=== PATIENT | male | born 1995 | race Caucasian/White ===

== ENCOUNTER 2018-01-18 11:59 | Emergency (ER) | payer OTHER, SELFPAY ==
[2018-01-18 12:36] VITALS: BP 146/77; PULSE 77; RESP 16; TEMP 37.3; O2SAT 100; BMI 23.1
--- NOTE | 2018-01-18 12:42 | XR_ITS ---
XR shoulder LT min 2V HISTORY: Pain following injury ITS.REASON: HIT A FENCE POST/FEELS LIKE ITS POPPING OUT ORDERING PHYSICIAN: Yaquelin Ortega PATIENT AGE: 22 years COMPARISON: None FINDINGS: No fracture or dislocation. No lytic or blastic change. There is normal mineralization. The joint spaces are well-preserved. No significant degenerative/arthritic changes. No erosive changes evident. IMPRESSION: Negative, no acute finding
--- NOTE | 2018-01-18 13:18 | HMH.EDUTC ---
[facility] [place]: Left shoulder pain Qualifiers: Chronicity: acute Qualified Code(s): M25.512 - Pain in left shoulder Disposition: Home, Self-Care Condition on Discharge: Good Instructions: DI for Rotator Cuff Injury, DI for Shoulder Pain Additional Instructions: * Xray negative. Exam suggest injury to the rotator cuff. Follow up will be important * move as tolerated but with any pain, stop. No heavy lifting, pulling, pushing with left arm. See workman's comp form for restrictions * Rest * ice 15-20 mins 3-4 times a day *sling for support. * Ibuprofen every 6 hours as needed for pain and inflammation. If you need something more, you can take tylenol every 4 hours as needed as long as your primary care provider has told you it is ok to take both. Referrals: Valente Almazan MD [Staff Physician] - (Call office Friday. Report seen in [facility] and suspect rotator cuff injury. Request follow up appt) Time of Disposition: 13:30 Medical Decision Making Vital Signs: 01/18/18 12:36 Temperature 99.1 F Temperature Source Temporal Artery Scan Pulse Rate [Right Radial] 77 Respiratory Rate 16 Blood Pressure [Right Arm] 146/77 Blood Pressure Mean [Right Arm] 100 02 Sat by Pulse Oximetry 100 Oxygen Delivery Method Room Air Orders (Tests/Meds): ORDERS Category Date Time Status Shoulder XR left minimum 2 views [XR shoulder LT min 2V Exams 01/18/18 12:42 Taken ] Stat - Radiology Data #1 Image(s): Shoulder Image Reviewed: Yes I reviewed the patient's radiology image w/the ED provider Preliminary Findings: Normal/NAD rvwd w JACOB Mcclain MD - Fredrick Inquiry Pt receiving controlled substance: No [facility] [place] - General Stated complaint: WC [id number] left shoulder pain Time Seen by Provider: 01/18/18 13:19 Mode of Arrival: Family Vehicle Source of Information: Patient Limitations: No Limitations Description of Symptoms (Recalled from Triage Doc. by RN): PT STATES THAT ON 01/10/18 HE WAS AT WORK AND WAS WALKING A HORSE WHEN HE TRIPPED AND HIT HIS LEFT SHOULDER ON A FENCE POST. SINCE THE ACCIDENT THE PAIN HAS INCREASING GOTTEN WORSE AND FEELS LIKE HIS SHOULDER IS POPPING OUT OF PLACE. HEENT Symptoms (Recalled from RN notes): No Resp Symptoms (Recalled from RN notes): No Skin Symptoms (Recalled from RN notes): No MS Symptoms (Recalled from RN notes): Yes (LEFT SHOULDER INJURY/FEELS LIKE ITS POPPING OUT) Functional Status (Recalled from RN notes): NA - History of Present Illness Provider Complaint: c/o left shoulder pain. Started on Friday, one week ago, while at work. Reports he was leading a horse to field when it took off, he tripped, and reports running shoulder first into a fence post. Immediate pain but just thought it was like a bone bruise . No treatment since then. Tried waiting out the pain. No ice, heat, otc pain relievers, nothing. Pain worsening and feels popping in shoulder at times w/ movement but not consistently. Denies N/T. - Related Data Allergies Allergy/AdvReac Type Severity Reaction Status Date / Time NO KNOWN ALLERGIES - NKA Allergy Mild Uncoded 11/04/17 15:00 INGREDIENT: NO KNOWN - NO Allergy Unknown Uncoded 11/04/17 15:00 KNOWN DRUG ALLERGY - Worker's Comp Is this a Worker's Comp case?: Yes Is this an [employer] Worker's Comp?: No Is this a [facility] Worker's Comp?: No [facility] History I have reviewed the patient's past medical history: Yes (denies any PMHx) Medical History: Denies:: Cancer, Diabetes Mellitus Type 1, Diabetes Mellitus Type 2, Hypertension, MRSA Other Surgeries: Yes: No Previous Surgery Amputation: No Fractures: No - Social History Smoking Status: Current every day smoker Tobacco Type: cigarettes Alcohol Intake: never - Psychiatric History Expresses thoughts of harming self/others: None Suicide Plan Description: No Plan ROS Obtained: Yes Systems reviewed as appropriate & no additional complaints - Constitutional Constitutional: Denies fever
--- NOTE | 2018-01-18 13:27 | ED_ITS ---
[facility] [place] Clinical Impression: Left shoulder pain Qualifiers: Chronicity: acute Qualified Code(s): M25.512 - Pain in left shoulder Disposition: Home, Self-Care Condition on Discharge: Good Instructions: DI for Rotator Cuff Injury, DI for Shoulder Pain Additional Instructions: * Xray negative. Exam suggest injury to the rotator cuff. Follow up will be important * move as tolerated but with any pain, stop. No heavy lifting, pulling, pushing with left arm. See workman's comp form for restrictions * Rest * ice 15-20 mins 3-4 times a day *sling for support. * Ibuprofen every 6 hours as needed for pain and inflammation. If you need something more, you can take tylenol every 4 hours as needed as long as your primary care provider has told you it is ok to take both. Referrals: Valente Almazan MD [Staff Physician] - (Call office Friday. Report seen in [facility] and suspect rotator cuff injury. Request follow up appt) Time of Disposition: 13:30 Medical Decision Making Vital Signs: 01/18/18 12:36 Temperature 99.1 F Temperature Source Temporal Artery Scan Pulse Rate [Right Radial] 77 Respiratory Rate 16 Blood Pressure [Right Arm] 146/77 Blood Pressure Mean [Right Arm] 100 02 Sat by Pulse Oximetry 100 Oxygen Delivery Method Room Air Orders (Tests/Meds): ORDERS Category Date Time Status Shoulder XR left minimum 2 views [XR shoulder LT min 2V Exams 01/18/18 12:42 Taken ] Stat - Radiology Data #1 Image(s): Shoulder Image Reviewed: Yes I reviewed the patient's radiology image w/the ED provider Preliminary Findings: Normal/NAD rvwd w JACOB Mcclain MD - Fredrick Inquiry Pt receiving controlled substance: No [facility] [place]PI - General Stated complaint: WC [id number] left shoulder pain Time Seen by Provider: 01/18/18 13:19 Mode of Arrival: Family Vehicle Source of Information: Patient Limitations: No Limitations Description of Symptoms (Recalled from Triage Doc. by RN): PT STATES THAT ON HE WAS AT WORK AND WAS WALKING A HORSE WHEN HE TRIPPED AND HIT HIS LEFT SHOULDER ON A FENCE POST. SINCE THE ACCIDENT THE PAIN HAS INCREASING GOTTEN WORSE AND FEELS LIKE HIS SHOULDER IS POPPING OUT OF PLACE. HEENT Symptoms (Recalled from RN notes): No Resp Symptoms (Recalled from RN notes): No Skin Symptoms (Recalled from RN notes): No MS Symptoms (Recalled from RN notes): Yes (LEFT SHOULDER INJURY/FEELS LIKE ITS POPPING OUT) Functional Status (Recalled from RN notes): NA - History of Present Illness Provider Complaint: c/o left shoulder pain. Started on Friday, one week ago, while at work. Reports he was leading a horse to field when it took off, he tripped, and reports running shoulder first into a fence post. Immediate pain but just thought it was like a bone bruise . No treatment since then. Tried waiting out the pain. No ice, heat, otc pain relievers, nothing. Pain worsening and feels popping in shoulder at times w/ movement but not consistently. Denies N/T. - Related Data Allergies Allergy/AdvReac Type Severity Reaction Status Date / Time NO KNOWN ALLERGIES - NKA Allergy Mild Uncoded 11/04/17 15:00 INGREDIENT: NO KNOWN - NO Allergy Unknown Uncoded 11/04/17 15:00 KNOWN DRUG ALLERGY - Worker's Comp Is this a Worker's Comp case?: Yes Is this an [facility] Worker's Comp?: No Is this a [facility] Worker's Comp?: No [facility] History I have reviewed the patie
[2018-01-18 13:36] VITALS: BP 135/72; PULSE 73; RESP 16; TEMP 37.1; O2SAT 100
== END 2018-01-18 13:42 | disposition home or self-care (01) ==
PROVIDERS: Emergency Provider Nurse Practitioner Family
DX: M25.512 Pain in left shoulder (principal); W22.8XXA Striking against or struck by other objects, initial encounter; Y92.69 Other specified industrial and construction area as the place of occurrence of the external cause; Y99.0 Civilian activity done for income or pay
CPT/HCPCS: 73030; 99202

== ENCOUNTER 2021-01-07 12:40 | Emergency (ER) | payer SELFPAY ==
[2021-01-07 12:40] VITALS: BP 144/86; PULSE 89; RESP 20; TEMP 38.8; O2SAT 100; BMI 25.0
--- NOTE | 2021-01-07 13:07 | HMH.EDUTC ---
[facility] [place] Disposition Clinical Impression: URI (upper respiratory infection) Qualifiers: URI type: unspecified URI Qualified Code(s): J06.9 - Acute upper respiratory infection, unspecified Disposition: Home, Self-Care Condition on Discharge: Good Instructions: Sore Throat, Sinusitis, DI for COVID-19 (Suspected or Confirmed ), Coronavirus Disease 2019, DI for Low Back Pain Additional Instructions: *Monitor Temp, Over the counter Motrin or Tylenol as directed/as needed Tylenol every 4 hours and Motrin every 6 hours (as long as your family doctor has told you that you can take it) for fever or pain. and straight to ER if unable to lower temp less than 101.0 after medication given *Warm salt water gargles may help to soothe the throat *Throat Lozenges *Warm fluids like tea with honey may help to soothe the throat *Sleep elevated *Humidifier/Vaporizer Your throat swab was sent for culture. Those results are typically sent to your primary care. Be sure to follow up in 2-3 days with your family doctor/primary care physician if no improvement so they can review those result and treat if necessary. If you don?t have a primary care doctor, I recommend you get one but in the mean time, you will have to return to a walk in clinic Follow up IMMEDIATELY for new or worsening symptoms or no Noticeable improvement over the next 48-72 hours. 911 for difficulty breathing or swallowing You were tested for today for COVID19 your test result should be back in the next 24-48 hours, you may call to the [facility] [[email or web address]] to see if your test results are back in the next 48 hours [phone] [facility] [[email or web address]] hours are 9am-9pm You was given a handout with instructions for Self Quarantine and Self isolation for while you wait on test results and what to do if they are positive If you are positive the Health Dept will be contacting you also Prescriptions: methylPREDNISolone [Medrol 4mg tab] 4 mg PO DIRECTED #21 tab Transmission Status: Received by [id number] Azithromycin [Z-Jason 250mg Tab] 250 mg PO DIRECTED #6 tab Transmission Status: Received by [id number] Referrals: PCP,No [Primary Care Provider] - As needed Forms: Work/School Release Time of Disposition: 13:26 Medical Decision Making - Fredrick Inquiry Pt receiving controlled substance: No Fredrick was queried for this patient: No Vital Signs: 01/07/21 12:40 Temperature 101.8 F H Temperature Source Oral Pulse Rate [Right Brachial] 89 Respiratory Rate 20 Blood Pressure [Right Arm] 144/86 H Blood Pressure Mean [Right Arm] 105 Blood Pressure Source [Right Arm] Automatic Cuff Blood Pressure Position [Right Arm] Sitting 02 Sat by Pulse Oximetry 100 Oxygen Delivery Method Room Air - Lab Data Lab results reviewed: Yes: I reviewed the patient's lab results. Orders (Tests/Meds): ED MEDICATIONS Discontinued Medications Generic Name Dose Route Start Last Admin Trade Name Freq PRN Reason Stop Dose Admin Ibuprofen 800 mg 01/07/21 13:06 01/07/21 13:14 Ibuprofen 400 Mg Tablet PO 01/07/21 13:07 800 mg ONCE ONE Administration ORDERS Category Date Time Status Covid-19 Nasal PCR ([facility]) Routine Lab 01/07/21 13:10 Received [facility] [place] HPI - General Stated complaint: cough, back pain, headache Time Seen by Provider: 01/07/21 13:07 Mode of Arrival: Ambulatory Source of Information: Patient Limitations: No Limitations Description of Symptoms (Recalled from Triage Doc. by RN): PATIENT C/O COUGH, BACK PAIN, RUNNY NOSE, HEADACHE, AND FEVER X 2 DAYS HEENT Symptoms (Recalled from RN notes): Yes Resp Symptoms (Recalled from RN notes): Yes Skin Symptoms (Recalled from RN notes): No MS Symptoms (Recalled from RN notes): No Functional Status (Recalled from RN notes): WNL - History of Present Illness Provider Complaint: Patient state that he has not felt well for a couple days States that he feels like his throat hurts and scratchy, headache, body aches and low back ache chills and
[2021-01-07 13:42] LABS: Apearance,Urine Clear (Clear); Bilirubin,Urine 1+ (Negative); Blood, Urine Negative (Negative); Color,Urine Yellow (Yellow); Glucose,Urine (UA) Negative (Negative); Ketones,Urine TRACE (Negative); Protein,Urine 1+ (Negative); UTC Leukocyte Esterase,Urine Negative (Negative); UTC Nitrate,Urine Negative (Negative); Urobilinogen,Urine 0.2 EU/dl (0.2)
[2021-01-07 13:43] VITALS: BP 144/86; PULSE 89; RESP 20; TEMP 37.1; O2SAT 100
[2021-01-07 13:43] LABS: UTC Influenza A Antigen Negative (Negative); UTC Influenza B Antigen Negative (Negative); UTC Strep Screen (Rapid) Negative (Negative)
--- NOTE | 2021-01-07 20:17 | PC.NURSE ---
PT NOTIFIED OF POSITIVE COVID RESULT
== END 2021-01-07 13:48 | disposition home or self-care (01) ==
PROVIDERS: Emergency Provider Nurse Practitioner
DX: U07.1 COVID-19 (principal)
CPT/HCPCS: 81003; 87804; 87880; 99202; G0463; U0003

== ENCOUNTER 2021-02-09 16:12 | Emergency (ER) | payer OTHER, SELFPAY ==
[2021-02-09 16:42] VITALS: BP 147/80; PULSE 68; RESP 19; TEMP 37; O2SAT 98; BMI 24.4
--- NOTE | 2021-02-09 16:57 | HMH.EDUTC ---
[facility] [place] Impression: Cellulitis of left index finger Disposition: Home, Self-Care Condition on Discharge: Good Instructions: Cellulitis Additional Instructions: Apply warm wet compresses to the affected sites three or four times per day for 15 minutes as tolerated, or soak your hand in epsom salts water 3 or 4 times per day. Take the antibiotics as directed. Apply the topical medication as directed. Follow up with your regular doctor. Watch the site for signs of worsening infection, such as worsening swelling, drainage, redness, etc. Follow up for any concerns. GO TO THE ER FOR ANY WORSENING SYMPTOMS OR CONCERNS Prescriptions: Sulfamethoxazole/Trimethoprim [Bactrim DS tablet] 1 each PO BID 10 Days #20 tab Transmission Status: Received by [facility] Mupirocin [Bactroban 2% Ointment 22gm tube] 1 applicatio TP TID 7 Days #1 tube Transmission Status: Received by [facility] cephALEXin [cephALEXin 500mg capsule] 500 mg PO Q6H 10 Days #40 cap Transmission Status: Received by [facility] Referrals: PCP,No [Primary Care Provider] - Time of Disposition: 17:01 Medical Decision Making - Medical Records Medical records reviewed: No: I reviewed the patient's medical records. - Fredrick Inquiry Pt receiving controlled substance: No Vital Signs: 02/09/21 16:42 02/09/21 17:10 Temperature 98.6 F 98.5 F Temperature Source Oral Pulse Rate 67 Pulse Rate [Right] 68 Respiratory Rate 19 20 Blood Pressure 145/84 H Blood Pressure [Right Arm] 147/80 H Blood Pressure Mean [Right Arm] 102 Blood Pressure Source [Right Arm] Automatic Cuff 02 Sat by Pulse Oximetry 98 Oxygen Delivery Method Room Air Room Air Orders (Tests/Meds): ORDERS Category Date Time Status Wound Culture and Gram Stain Stat Micro 02/09/21 17:00 Results [facility] [place] - General Stated complaint: ao 02/07 SPINDER IN l HAND Time Seen by Provider: 02/09/21 16:57 - History of Present Illness Provider Complaint: He states that for the past 3 to 4 days he has had an infected place on his left index finger. There was a splinter in this wound to start out,but he got it out yesterday. Since then the wound has swollen more and had tannish discharge. - Related Data Previous Rx's Medication Instructions Recorded Mupirocin [Bactroban 2% Ointment 1 applicatio TP TID 7 Days #1 tube 02/09/21 22gm tube] Sulfamethoxazole/Trimethoprim 1 each PO BID 10 Days #20 tab 02/09/21 [Bactrim DS tablet] cephALEXin [cephALEXin 500mg 500 mg PO Q6H 10 Days #40 cap 02/09/21 capsule] Allergies Allergy/AdvReac Type Severity Reaction Status Date / Time No Known Allergies Allergy Verified 09/12/18 13:49 [facility] History - Hepatitis A Screen Attestation statement:: This patient has been screened for Hepatitis A risk factors. I have reviewed the patient's past medical history: Yes Medical History: Denies:: Cancer, Diabetes Mellitus Type 1, Diabetes Mellitus Type 2, Hypertension, MRSA Other Surgeries: Yes: No Previous Surgery Amputation: No Fractures: No - Social History Smoking Status: Unknown if ever smoked Tobacco Type: smokeless tobacco Alcohol Intake: never Occupational Status: other ROS Obtained: Yes All systems reviewed & no additional complaints - Constitutional Constitutional: Denies chills, Denies fever(s) - Eyes Eyes: Denies eye discharge - Musculoskeletal Musculoskeletal: Denies joint pain - Integumentary/Breasts Skin/Breast: Reports as per HPI - Neurologic Neurologic: Denies tingling/numbness/burning sensations Physical Exam - General General appearance: alert, in no apparent distress - Head Head exam: atraumatic, normocephalic, normal inspection - Eye Eye exam: Present: normal appearance, PERRL, EOMI - ENT ENT exam: Present: normal exam, normal oropharynx, mucous membranes moist, TM's normal bilaterally, normal external ear exam - Ne
[2021-02-09 17:10] VITALS: BP 145/84; PULSE 67; RESP 20; TEMP 36.9; O2SAT 99
== END 2021-02-09 17:16 | disposition home or self-care (01) ==
PROVIDERS: Emergency Provider Nurse Practitioner Family
DX: L03.012 Cellulitis of left finger (principal)
CPT/HCPCS: 87070; 87077; 87186; 87205; 99202; G0463

== ENCOUNTER 2021-04-14 12:06 | Emergency (ER) | payer OTHER, SELFPAY ==
[2021-04-14 12:15] VITALS: BP 140/87; PULSE 98; RESP 20; TEMP 36.8; O2SAT 100; BMI 24.4
[2021-04-14 12:54] LABS: UTC Strep Screen (Rapid) Positive (Negative)
--- NOTE | 2021-04-14 13:10 | HMH.EDUTC ---
[facility] [place] Disposition Clinical Impression: Strep throat Disposition: Home, Self-Care Condition on Discharge: Good Instructions: DI for Strep Throat Additional Instructions: Start antibiotics today be sure to take it as ordered with the full length of time although you should start feeling better in 24-48 hours. Change toothbrush and toothpaste 24-48 hours after starting antibiotics Tylenol or Motrin as needed for fever or pain Encourage fluids, water, Gatorade, Powerade, try cold fluids, popsicles, ice cream will make it feel better You are contagious for 24 hours. Avoid kissing anyone, no eating or drinking after anyone. You are contagious. Follow-up the ER for new or worsening symptoms or no noticeable improvement over the next 24-48 hours. Follow-up with PCP this week. Prescriptions: Azithromycin [Zithromax 250mg tab] 250 mg PO DIRECTED #6 tab Transmission Status: Pending to [facility] Referrals: Provider,Referral, [Primary Care Provider] - Time of Disposition: 13:13 (pt refused covid swab) Medical Decision Making - Fredrick Inquiry Pt receiving controlled substance: No Vital Signs: 04/14/21 12:15 Temperature 98.2 F Temperature Source Oral Pulse Rate [Right Brachial] 98 H Respiratory Rate 20 Blood Pressure [Right Arm] 140/87 Blood Pressure Mean [Right Arm] 104 Blood Pressure Source [Right Arm] Automatic Cuff Blood Pressure Position [Right Arm] Sitting 02 Sat by Pulse Oximetry 100 Oxygen Delivery Method Room Air - Lab Data Lab Results 04/14/21 12:18: Strep Scn Rapid Clinic Positive A [facility] [place] HPI - General Chief complaint: Urgent [facility] Stated complaint: congestion, sore throat Time Seen by Provider: 04/14/21 13:10 Mode of Arrival: Ambulatory Source of Information: Patient Limitations: No Limitations Description of Symptoms (Recalled from Triage Doc. by RN): PATIENT C/O SORE THROAT, CONGESTION, AND COUGH X 1 WEEK HEENT Symptoms (Recalled from RN notes): No Resp Symptoms (Recalled from RN notes): No Skin Symptoms (Recalled from RN notes): Yes MS Symptoms (Recalled from RN notes): No Functional Status (Recalled from RN notes): WNL - History of Present Illness Provider Complaint: 25 yr old male presents for sore throat, congestion and runny nose for 1 week. - Related Data Previous Rx's Medication Instructions Recorded Mupirocin [Bactroban 2% Ointment 1 applicatio TP TID 7 Days #1 tube 02/09/21 22gm tube] Sulfamethoxazole/Trimethoprim 1 each PO BID 10 Days #20 tab 02/09/21 [Bactrim DS tablet] cephALEXin [cephALEXin 500mg 500 mg PO Q6H 10 Days #40 cap 02/09/21 capsule] Azithromycin [Zithromax 250mg 250 mg PO DIRECTED #6 tab 04/14/21 tab] Allergies Allergy/AdvReac Type Severity Reaction Status Date / Time No Known Allergies Allergy Verified 09/12/18 13:49 - Worker's Comp Is this a Worker's Comp case?: No [facility] History - Hepatitis A Screen Drug use history?: No High risk sexual behaviors?: No History of sexually transmitted infection?: No Currently employed?: No Childcare worker?: No Do you have indoor plumbing?: Yes Do you have electricity?: Yes Attestation statement:: This patient has been screened for Hepatitis A risk factors. I have reviewed the patient's past medical history: Yes Medical History: Denies:: Cancer, Diabetes Mellitus Type 1, Diabetes Mellitus Type 2, Hypertension, MRSA Other Surgeries: Yes: No Previous Surgery Amputation: No Fractures: No - Social History Smoking Status: Unknown if ever smoked Tobacco Type: smokeless tobacco Alcohol Intake: never Occupational Status: other ROS Obtained: Yes Systems reviewed as appropriate & no additional complaints - Constitutional Constitutional: Reports system reviewed and no additional complaints, except as docu, Denies chills, Denies fever(s) - Eyes Eyes: Reports system reviewed and no additional complaints, except as docu, Denies blurry vision
[2021-04-14 13:24] VITALS: BP 140/87; PULSE 98; RESP 20; TEMP 36.8; O2SAT 100
== END 2021-04-14 13:27 | disposition home or self-care (01) ==
PROVIDERS: Emergency Provider Nurse Practitioner Family
DX: J02.0 Streptococcal pharyngitis (principal)
CPT/HCPCS: 87880; 99202; G0463

== ENCOUNTER 2021-06-20 09:50 | Emergency (ER) | payer OTHER, SELFPAY ==
[2021-06-20 09:51] VITALS: BP 145/85; PULSE 90; RESP 21; TEMP 37.1; O2SAT 99; BMI 25.0
[2021-06-20 10:34] LABS: UTC Strep Screen (Rapid) Positive (Negative)
--- NOTE | 2021-06-20 10:42 | HMH.EDUTC ---
[facility] [place] Dis[place] Clinical Impression: Strep throat Disposition: Home, Self-Care Condition on Discharge: Good Instructions: Strep Throat, DI for Strep Throat Additional Instructions: Drink plenty of fluids. Take tylenol or ibuprofen for pain or fever. Take the medications as directed. Follow up with your regular doctor. GO TO THE ER FOR ANY WORSENING SYMPTOMS Throw your tooth brush away and get a new one. Prescriptions: Brompheniramine/Pseudoephed/Dm [Bromfed Dm Cough Syrup] 5 ml PO Q6HP PRN #240 syrup PRN Reason: Cough Transmission Status: Received by [email or web address] Amoxicillin/Potassium Clav [Augmentin 875-125 Tablet] 1 tab PO Q12H 10 Days #20 tab Transmission Status: Received by [email or web address] Referrals: Provider,Referral, MD [Primary Care Provider] - Forms: Work/School Release Time of Disposition: 10:44 Medical Decision Making - Medical Records Medical records reviewed: No: I reviewed the patient's medical records. - Fredrick Inquiry Pt receiving controlled substance: No Vital Signs: 06/20/21 09:51 06/20/21 10:48 Temperature 98.7 F 98.7 F Temperature Source Oral Pulse Rate 90 Pulse Rate [Left Radial] 90 Respiratory Rate 21 21 Blood Pressure 145/85 H Blood Pressure [Right Arm] 145/85 H Blood Pressure Mean [Right Arm] 105 Blood Pressure Source [Right Arm] Automatic Cuff Blood Pressure Position [Right Arm] Sitting 02 Sat by Pulse Oximetry 99 Oxygen Delivery Method Room Air Room Air - Lab Data Lab results reviewed: Yes: I reviewed the patient's lab results. Lab Results 06/20/21 10:19: Strep Scn Rapid Clinic Positive A [facility] [place] HPI - General Stated complaint: sore throat, runny nose, cough Time Seen by Provider: 06/20/21 10:42 Mode of Arrival: Ambulatory Source of Information: Patient Limitations: No Limitations Description of Symptoms (Recalled from Triage Doc. by RN): c/o wet cough, runny nose, sore throat and fever since Friday HEENT Symptoms (Recalled from RN notes): Yes Resp Symptoms (Recalled from RN notes): Yes (cough) Skin Symptoms (Recalled from RN notes): No MS Symptoms (Recalled from RN notes): No Functional Status (Recalled from RN notes): wnl - History of Present Illness Provider Complaint: He c/o sore throat, feeling bad and having a low grade fever for the past 2 days. He denies any covid-19 exposure. - Related Data Previous Rx's Medication Instructions Recorded Mupirocin [Bactroban 2% Ointment 1 applicatio TP TID 7 Days #1 tube 02/09/21 22gm tube] Sulfamethoxazole/Trimethoprim 1 each PO BID 10 Days #20 tab 02/09/21 [Bactrim DS tablet] cephALEXin [cephALEXin 500mg 500 mg PO Q6H 10 Days #40 cap 02/09/21 capsule] Azithromycin [Zithromax 250mg 250 mg PO DIRECTED #6 tab 04/14/21 tab] Amoxicillin/Potassium Clav 1 tab PO Q12H 10 Days #20 tab 06/20/21 [Augmentin 875-125 Tablet] Brompheniramine/Pseudoephed/Dm 5 ml PO Q6HP PRN #240 syrup 06/20/21 [Bromfed Dm Cough Syrup] Allergies Allergy/AdvReac Type Severity Reaction Status Date / Time No Known Allergies Allergy Verified 09/12/18 13:49 - Worker's Comp Is this a Worker's Comp case?: No [facility] History - Hepatitis A Screen Drug use history?: No High risk sexual behaviors?: No History of sexually transmitted infection?: No Currently employed?: No Childcare worker?: No Do you have indoor plumbing?: Yes Do you have electricity?: Yes Attestation statement:: This patient has been screened for Hepatitis A risk factors. I have reviewed the patient's past medical history: Yes Medical History: Denies:: Cancer, Diabetes Mellitus Type 1, Diabetes Mellitus Type 2, Hypertension, MRSA Other Surgeries: Yes: No Previous Surgery Amputation: No Fractures: No - Social History Smoking Status: Unknown if ever smoked Tobacco Type: smokeless tobacco Alcohol Intake: never Occupational Status: other ROS Obtained: Yes All systems reviewed & no additional
[2021-06-20 10:48] VITALS: BP 145/85; PULSE 90; RESP 21; TEMP 37.1; O2SAT 99
== END 2021-06-20 10:49 | disposition home or self-care (01) ==
PROVIDERS: Emergency Provider Nurse Practitioner Family
DX: J02.0 Streptococcal pharyngitis (principal)
CPT/HCPCS: 87880; 99203; G0463; U0003

== ENCOUNTER 2021-12-01 12:01 | Emergency (ER) | payer BC, SELFPAY ==
[2021-12-01 14:56] VITALS: BP 0/0; PULSE 0; RESP 0; TEMP -17.7; TEMP 0
== END 2021-12-01 14:57 | disposition left against medical advice (07) ==
LOC: UTC 12:13
PROVIDERS: Emergency Provider Nurse Practitioner Family
DX: Z53.21 Procedure and treatment not carried out due to patient leaving prior to being seen by health care provider (principal)

== ENCOUNTER 2022-11-27 10:52 | Emergency (ER) | payer BC, SELFPAY ==
[2022-11-27 11:00] VITALS: BP 167/96; PULSE 88; RESP 19; TEMP 36.5; O2SAT 98; BMI 27.0
--- NOTE | 2022-11-27 11:26 | EXP.UTC ---
Discharge Plan Disposition Patient Disposition: Home, Self-Care Condition: Good Prescriptions Prescriptions: New azithromycin [Zithromax Z-Jason] 250 mg tablet See Rx Instructions .ROUTE .COMPLEX 5 Days Qty: 6 0RF Rx Instructions: For 250 mg dose pack: take 500 mg today (day 1), then 250 mg for 4 days (days 2-5) benzonatate 100 mg capsule 100 mg PO TID PRN (Reason: cough) Qty: 30 0RF methylprednisolone [Medrol (Jason)] 4 mg tablets,dose pack See Rx Instructions .Route .COMPLEX 6 Days Qty: 21 0RF Rx Instructions: taper pack; Referrals Follow up/Referrals: Provider,Referral, MD [Primary Care Provider] - See instructions Activity Restrictions/Add. Instructions Additional Instructions/Restrictions: *Monitor Temp, Over the counter Motrin or Tylenol as directed/as needed Tylenol every 4 hours and Motrin every 6 hours (as long as your family doctor has told you that you can take it) for fever or pain. and straight to ER if unable to lower temp less than 101.0 after medication given *Warm salt water gargles may help to soothe the throat *Throat Lozenges? *Warm fluids like tea with honey may help to soothe the throat? *Sleep elevated *Humidifier/Vaporizer Your throat swab was sent for culture. Those results are typically sent to your primary care. Be sure to follow up in 2-3 days with your family doctor/primary care physician if no improvement so they can review those result and treat if necessary. If you don?t have a primary care doctor, I recommend you get one but in the mean time, you will have to return to a walk in clinic Follow up IMMEDIATELY for new or worsening symptoms or no Noticeable improvement over the next 48-72 hours. 911 for difficulty breathing or swallowing Clinical Impressions Clinical Impression: Sinusitis Stand Alone Forms Stand Alone Forms: Work/School Release Instructions Patient Instructions: DI for Sinusitis, Sinusitis Discharge ED Provider: Chelsey Belle [facility] [place] HPI General Stated complaint: Cough, congestion, sore throat Mode of Arrival: Ambulatory Source of Information: Patient Limitations: No Limitations Time Seen by Provider: 11/27/22 11:26 Description of Symptoms (Recalled from Triage Doc. by RN): sore throat HEENT Symptoms (Recalled from RN notes): Yes Resp Symptoms (Recalled from RN notes): No Skin Symptoms (Recalled from RN notes): No MS Symptoms (Recalled from RN notes): No Functional Status (Recalled from RN notes): n/a History of Present Illness Provider Complaint: Patient states that he has been having sore throat, headache, sinus congestion and cough States that he hasnt felt well for several days and today he was still feeling bad so he came in Related Data Previous Rx's Medication Instructions Recorded azithromycin 250 mg tablet See Rx Instructions PO .COMPLEX 5 11/27/22 (Zithromax Z-Jason) days #6 tabs benzonatate 100 mg capsule 100 mg PO TID PRN cough #30 caps 11/27/22 methylprednisolone 4 mg tablets in See Rx Instructions .Route 11/27/22 a dose pack (Medrol (Jason)) .COMPLEX 6 days #21 tabs Allergies Allergy/AdvReac Type Severity Reaction Status Date / Time No Known Allergies Allergy Verified 11/27/22 11:19 Worker's Comp Is this a Worker's Comp case?: No PFSH [facility] Disclaimer: The information contained in this section may have been updated after the patient was seen, as this information can be updated by other users. Social History Smoking Status: Unknown if ever smoked alcohol intake: never current occupational status: other Travel in the last 8 weeks: None ROS Obtained: Yes All systems reviewed & no additional complaints except as documented and Yes Systems reviewed as appropriate & no additional complaints except as documented Constitutional Constitutional: Reports system reviewed and no additional complaints, except as documented, Reports as per HPI and Reports headache(s) ENT Ears, Nose,
[2022-11-27 11:28] LABS: UTC Strep Screen (Rapid) Negative (Negative)
[2022-11-27 11:29] LABS: UTC Influenza A Antigen Negative (Negative); UTC Influenza B Antigen Negative (Negative)
[2022-11-27 11:50] VITALS: BP 167/96; PULSE 88; RESP 19; TEMP 36.5; O2SAT 98
== END 2022-11-27 11:50 | disposition home or self-care (01) ==
PROVIDERS: Emergency Provider Nurse Practitioner
DX: J32.9 Chronic sinusitis, unspecified (principal)
CPT/HCPCS: 87804; 87880; 99212; 99213; G0463

== ENCOUNTER 2023-08-29 17:23 | Emergency (ER) | payer BC, SELFPAY ==
[2023-08-29 17:23] VITALS: BP 139/92; PULSE 77; RESP 18; TEMP 37.1; O2SAT 97; BMI 26.4
--- NOTE | 2023-08-29 17:39 | EXP.UTC ---
Discharge Plan Disposition Patient Disposition: Home, Self-Care Condition: Good Prescriptions Prescriptions: New methylprednisolone 4 mg Tablets,Dose Pack 4 mg PO DIRECTED Qty: 21 0RF cmaxspgaojvlydy-miggkfmeg-GD [Bromfed DM] 2-30-10 mg/5 mL Syrup 5 ml PO Q6H PRN (Reason: Cough) Qty: 240 0RF amoxicillin-pot clavulanate 875-125 mg Tablet 1 tab PO Q12H Qty: 20 0RF Referrals Follow up/Referrals: Provider,Referral, MD [Primary Care Provider] - See instructions Activity Restrictions/Add. Instructions Additional Instructions/Restrictions: Drink plenty of fluids. Take tylenol or ibuprofen for pain or fever. Take the medications as directed. Follow up with your regular doctor. GO TO THE ER FOR ANY WORSENING SYMPTOMS Stand Alone Forms Stand Alone Forms: Work/School Release Instructions Patient Instructions: Acute Bronchitis, DI for Acute Bronchitis Discharge ED Provider: Valente Lo [facility] General Stated complaint: cough, vomiting, lung pain Time Seen by Provider: 08/29/23 17:38 History of Present Illness Provider Complaint: He states that for the past 1 week he has had chest congestion, sinus congestion, and malaise. Related Data Previous Rx's Medication Instructions Recorded amoxicillin 875 mg-potassium 1 tab PO Q12H #20 tabs 08/29/23 clavulanate 125 mg tablet vxppakvodobccgz-rxxcwlkzcapshvp-OK 5 ml PO Q6H PRN Cough #240 mL 08/29/23 2 mg-30 mg-10 mg/5 mL oral syrup (Bromfed DM) methylprednisolone 4 mg tablets in 4 mg PO DIRECTED #21 tabs 08/29/23 a dose pack Allergies Allergy/AdvReac Type Severity Reaction Status Date / Time No Known Allergies Allergy Verified 08/29/23 17:47 [facility] Disclaimer: The information contained in this section may have been updated after the patient was seen, as this information can be updated by other users. Social History Smoking Status: Unknown if ever smoked alcohol intake: never current occupational status: other Travel in the last 8 weeks: None ROS Obtained: Yes All systems reviewed & no additional complaints except as documented Constitutional Constitutional: Reports poor appetite Eyes Eyes: Reports system reviewed and no additional complaints, except as documented ENT Ears, Nose, Mouth, and Throat: Reports as per HPI Cardiovascular Cardiovascular: Reports system reviewed and no additional complaints, except as documented and Denies chest pain Respiratory Respiratory: Denies shortness of breath, Reports chest congestion, Reports cough, Denies stridor and Denies wheezing Gastrointestinal Gastrointestingal: Reports system reviewed and no additional complaints, except as documented; Denies abdominal pain, diarrhea or vomiting Musculoskeletal Musculoskeletal: Reports system reviewed and no additional complaints, except as documented and Denies arthralgias Integumentary/Breasts Skin/Breast: Reports system reviewed and no additional complaints, except as documented and Denies rash Neurologic Neurologic: Denies paresthesias Allergic/Immunologic Allergic/Immunologic: Denies wheezing Physical Exam General General appearance: alert and in no apparent distress Eye Eye exam: Present normal appearance, PERRL and EOMI ENT ENT exam: Present mucous membranes moist and normal external ear exam Expanded ENT Exam External ear exam: Present normal external inspection TM/Canal exam: Bilateral TM: erythema and bulging Nose exam: Absent sinus tenderness Nasal speculum exam: Bilateral: normal Mouth exam: Present normal external inspection; Absent drooling Teeth exam: Present normal inspection Throat exam: Present tonsillar erythema and tonsillomegaly Neck Neck exam: Present normal inspection, full ROM and trachea midline; Absent tenderness, lymphadenopathy or thyromegaly Chest Chest inspection: Present normal inspection and symmetric chest wall rise; Absent tenderness or rash
[2023-08-29 18:18] VITALS: BP 139/92; PULSE 77; RESP 18; TEMP 37.1; O2SAT 97
== END 2023-08-29 18:18 | disposition home or self-care (01) ==
PROVIDERS: Emergency Provider Nurse Practitioner Family
DX: J20.9 Acute bronchitis, unspecified (principal)
CPT/HCPCS: 87635; 99212; 99214; G0463

== ENCOUNTER 2023-09-23 17:10 | Emergency (ER) | payer BC, SELFPAY ==
--- NOTE | 2023-09-23 17:15 | XR_ITS ---
PROCEDURE INFORMATION: Exam: XR Right Foot Exam date and time: 09/23/2023 5:13 PM Age: 28 years old Clinical indication: Injury or trauma; Other: Stepped on nail TECHNIQUE: Imaging protocol: Radiologic exam of the right foot. Views: 3 or more views. Total images: 3 COMPARISON: No relevant prior studies available. FINDINGS: Bones/joints: No evidence of acute fracture or dislocation. Soft tissues: Soft tissues are within normal limits. No evidence of radiopaque foreign body. IMPRESSION: 1. No evidence of acute fracture or dislocation. 2. No evidence of radiopaque foreign body.
[2023-09-23 17:20] VITALS: BP 152/95; PULSE 67; RESP 18; TEMP 36.6; O2SAT 100; BMI 27.3
--- NOTE | 2023-09-23 17:51 | EXP.UTC ---
Discharge Plan Disposition Patient Disposition: Home, Self-Care Condition: Good Prescriptions Prescriptions: New amoxicillin-pot clavulanate 875-125 mg Tablet 1 tab PO Q12H 7 Days Qty: 14 0RF Referrals Follow up/Referrals: Provider,Referral, [Primary Care Provider] - See instructions Activity Restrictions/Add. Instructions Additional Instructions/Restrictions: Clean wound well with antibacterial soap and water Take oral antibioitic Watch for signs of infection including but not limited to redness, swelling, drainage streaks if any seen follow up with your Family Doctor immediately Return if needed Area will be sore for several days take it easy Straight to ER if any life threatening symptoms Clinical Impressions Clinical Impression: Puncture wound Instructions Patient Instructions: DI for Puncture Wound, Amoxicillin and Clavulanic Acid Discharge ED Provider: Chelsey Belle [facility] [place] HPI General Stated complaint: AO09/23@1100 RT foot stepped on nail Mode of Arrival: Ambulatory Source of Information: Patient Limitations: No Limitations Time Seen by Provider: 09/23/23 17:51 Description of Symptoms (Recalled from Triage Doc. by RN): stepped on nail on right foot HEENT Symptoms (Recalled from RN notes): No Resp Symptoms (Recalled from RN notes): No Skin Symptoms (Recalled from RN notes): Yes MS Symptoms (Recalled from RN notes): No Functional Status (Recalled from RN notes): n/a History of Present Illness Provider Complaint: Patient states that earlier today he stepped on a nail that went through the bottom of his boot into the pad of his right foot States that he was able to pull it out and it is sore and hurts when he walks on it Unsure of when his last tetanus was Related Data Previous Rx's Medication Instructions Recorded amoxicillin 875 mg-potassium 1 tab PO Q12H 7 days #14 tabs 09/23/23 clavulanate 125 mg tablet Allergies Allergy/AdvReac Type Severity Reaction Status Date / Time No Known Allergies Allergy Verified 09/23/23 17:27 Worker's Comp Is this a Worker's Comp case?: No [facility] Disclaimer: The information contained in this section may have been updated after the patient was seen, as this information can be updated by other users. Social History Smoking Status: Unknown if ever smoked alcohol intake: never current occupational status: other Travel in the last 8 weeks: None ROS Obtained: Yes All systems reviewed & no additional complaints except as documented and Yes Systems reviewed as appropriate & no additional complaints except as documented Constitutional Constitutional: Reports system reviewed and no additional complaints, except as documented and Reports as per HPI ENT Ears, Nose, Mouth, and Throat: Reports system reviewed and no additional complaints, except as documented and Reports as per HPI Cardiovascular Cardiovascular: Reports system reviewed and no additional complaints, except as documented and Reports as per HPI Respiratory Respiratory: Reports system reviewed and no additional complaints, except as documented and Reports as per HPI Gastrointestinal Gastrointestingal: Reports system reviewed and no additional complaints, except as documented and as per HPI Genitourinary Male Genitourinary: Reports system reviewed and no additional complaints, except as documented and Reports as per HPI Musculoskeletal Musculoskeletal: Reports system reviewed and no additional complaints, except as documented and Reports as per HPI Comments: Pain in bottom of right foot after stepping on nail earlier today Physical Exam General General appearance: alert and in no apparent distress Eye Eye exam: Present normal appearance, PERRL and EOMI ENT ENT exam: Present normal exam, normal oropharynx, mucous membranes moist and TM's normal bilaterally Chest Chest inspection: Present normal inspection and symmetric chest wall rise R
[2023-09-23 18:22] VITALS: BP 152/95; PULSE 67; RESP 18; TEMP 36.6; O2SAT 100
== END 2023-09-23 18:22 | disposition home or self-care (01) ==
PROVIDERS: Emergency Provider Nurse Practitioner
DX: S91.331A Puncture wound without foreign body, right foot, initial encounter (principal); W45.0XXA Nail entering through skin, initial encounter
CPT/HCPCS: 73630; 90715; 96372; 99212; 99214; G0463

== ENCOUNTER 2024-03-30 13:58 | Emergency (ER) | payer BC, SELFPAY ==
[2024-03-30 14:05] VITALS: BP 157/92; PULSE 89; RESP 18; TEMP 37.2; O2SAT 99; BMI 26.4
--- NOTE | 2024-03-30 14:09 | XR_ITS ---
FINAL REPORT CLINICAL HISTORY: twisted FINDINGS: Right ankle Three views were obtained. There is no acute fracture or dislocation. The joint spaces appear normal. No soft tissue abnormality is identified. IMPRESSION: No acute process. Reviewed, Interpreted and Dictated by Nicolás Piña III, MD Transcribed by Tiera Heart Authenticated and [facility]
--- NOTE | 2024-03-30 14:09 | XR_ITS ---
FINAL REPORT CLINICAL HISTORY: twisted FINDINGS: Right foot Three views were obtained. There is no acute fracture or dislocation. The joint spaces appear normal. No soft tissue abnormality is identified. IMPRESSION: No acute process. Reviewed, Interpreted and Dictated by Nicolás Piña III, MD Transcribed by Tiera Heart Authenticated and [facility]
--- NOTE | 2024-03-30 14:24 | ED_ITS ---
Discharge Plan Disposition Patient Disposition: Home, Self-Care Condition: Good Prescriptions Prescriptions: New ibuprofen [IBU] 800 mg tablet 800 mg PO Q8HP PRN (Reason: Moderate Pain) Qty: 30 0RF Referrals Follow up/Referrals: Provider,Referral, [Primary Care Provider] - See instructions Mary Gomez DPM [Staff Physician] - See instructions Activity Restrictions/Add. Instructions Additional Instructions/Restrictions: Rest the extremity as much time as possible for the next few days, wear the adolfo wrap for compression, Elevate the extremity as tolerated while you are resting. Take ibuprofen for pain. I sent in a prescription to your pharmacy. Follow up with Dr. Gomez (podiatry). I put in a referral but you need to call her office and schedule an appointment. Follow up with your regular doctor. GO TO THE ER FOR ANY WORSENING SYMPTOMS Clinical Impressions Clinical Impression: Right foot sprain, Right ankle sprain Stand Alone Forms Stand Alone Forms: Work/School Release Instructions Patient Instructions: DI for Ankle Sprain, DI for Foot Sprain Discharge ED Provider: Valente Lo [facility] General Stated complaint: AO 03/27/24, inj right ankle Mode of Arrival: Ambulatory Source of Information: Patient Limitations: No Limitations Time Seen by Provider: 03/30/24 14:24 Description of Symptoms (Recalled from Triage Doc. by RN): Pt was playing softball on friday and twisted right ankle. HEENT Symptoms (Recalled from RN notes): No Resp Symptoms (Recalled from RN notes): No Skin Symptoms (Recalled from RN notes): No MS Symptoms (Recalled from RN notes): Yes Functional Status (Recalled from RN notes): n/a History of Present Illness Provider Complaint: He states that 2 days ago he was playing softball when he twisted his right ankle and foot. Since then he has had pain, tenderness and swelling of that ankle and foot. Bearing weight on that foot makes his pain worse. He denies any additional complaints or injuries. Related Data Previous Rx's Medication Instructions Recorded ibuprofen 800 mg tablet (IBU) 800 mg PO Q8HP PRN Moderate Pain 03/30/24 #30 tabs Allergies Allergy/AdvReac Type Severity Reaction Status Date / Time No Known Allergies Allergy Verified 03/30/24 14:20 Worker's Comp Is this a Worker's Comp case?: No [facility] Disclaimer: The information contained in this section may have been updated after the patient was seen, as this information can be updated by other users. Social History Smoking Status: Unknown if ever smoked alcohol intake: never current occupational status: other Travel in the last 8 weeks: None ROS Obtained: Yes All systems reviewed & no additional complaints except as documented Constitutional Constitutional: Denies chills and Denies fever(s) Eyes Eyes: Denies eye discharge ENT Ears, Nose, Mouth, and Throat: Denies dizziness, Denies otalgia and Denies sore throat Cardiovascular Cardiovascular: Denies chest pain Respiratory Respiratory: Denies shortness of breath, Denies chest congestion, Denies cough, Denies stridor and Denies wheezing Gastrointestinal Gastrointestingal: Denies nausea or vomiting Musculoskeletal Musculoskeletal: Reports as per HPI Integumentary/Breasts Skin/Breast: Denies rash Neurologic Neurologic: Denies dizziness, Denies paresthesias and Denies radicular pain Allergic/Immunologic Allergic/Immunologic: Denies wheezing Physical Exam General General appearance: alert and in no apparent distress Head Head exam: atraumatic, normocephalic and normal inspection Eye Eye exam: Present normal appearance, PERRL and EOMI ENT ENT exam: Present normal exam, normal oropharynx, mucous membranes moist, TM's normal bilaterally and normal external ear exam Neck Neck exam: Present normal inspection, full ROM and trachea midline; Absent meningismus or lymphadenopathy Chest Chest inspection: Present normal inspection and symmetric chest wall rise; Absent tenderness Respiratory Respiratory exam: Present normal lung sounds bilaterally; Absent respiratory distress Cardiovascular Cardiovascular exam: Present regular rate and normal rhythm; Absent JVD Abdominal Exam Abdominal exam: Present soft and normal bowel sounds; Absent distention, tenderness or guarding Extremities Exam Extremities exam: Present normal capillary refill; Absent calf tenderness Expanded Lower Extremity Exam Right: Hip/Pelvis exam: Present normal inspection and full ROM; Absent tenderness Upper leg exam: Present normal inspection and full ROM; Absent tenderness Knee exam: Present normal inspection, full ROM and knee extension intact; Absent tenderness Lower leg exam: Present normal inspection, full ROM and Achilles tendon intact; Absent tenderness or Homans' sign Ankle exam: Present tenderness and swelling; Absent full ROM, abrasion, laceration, ecchymosis, deformity, crepitus, dislocation, erythema, tenderness over talofibular lig or anterior draw sign Foot/toe exam: Present tenderness and swelling; Absent full ROM, abrasion, laceration, ecchymosis, deformity, crepitus, dislocation, erythema, amputation, puncture wound, foreign body, calcaneal tenderness, tenderness at base of 5th metatarsal, nail avulsion or subungual hematoma Neurovascular/Tendon exam: Present normal capillary refill, normal 2-point discrimination and normal fine/light touch; Absent pulse deficit, motor deficit, sensory deficit, tendon deficit, extremity cold to touch or pallor Gait: observed and limited by pain Back Exam Back exam: Present normal inspection; Absent tenderness Neurological Exam Neurological exam: Present alert and oriented X3 Psychiatric Psychiatric exam: Present normal affect and normal mood Skin Skin exam: Present warm, dry, intact and normal color Lymphatic Lymphatic Findings: no adenopathy Medical Decision Making Medical Records Medical records reviewed: No I reviewed the patient's medical records. Fredrick Inquiry Pt receiving controlled substance: No Vital Signs: 03/30/24 14:05 Temperature 98.9 F Temperature Source Oral Pulse Rate [Right Radial] 89 Respiratory Rate 18 Blood Pressure [Right Arm] 157/92 H Blood Pressure Mean [Right Arm] 113 Blood Pressure Source [Right Arm] Automatic Cuff Blood Pressure Position [Right Arm] Sitting 02 Sat by Pulse Oximetry 99 Oxygen Delivery Method Room Air Lab Data Lab results reviewed: Yes I reviewed the patient's lab results. Orders (Tests/Meds): ORDERS Category Date Time Status Ankle XR -Right minimum 3 Views [XR ankle RT min 3V] Exams 03/30/24 14:09 Ordered Stat XR foot RT min 3V Stat Exams 03/30/24 14:09 Ordered Radiology Data #1: Image(s): Foot/Toes Image Reviewed: Yes I reviewed the patient's radiology image and Yes I have reviewed radiologist's interpretation Preliminary Findings: No Fracture Seen Accession No. : [id number] Patient Name / ID : [place] RESENDIZ / [id number] Exam Date : 03/30/2024 14:14:33 ( Final ) Study Comment : Sex / Age : M / 28Y Creator : HAO PIÑA MD Dictator : Journeyman Pipefitter : Mold Insert Changer : HAO PIÑA MD Approver2 : Report Date : 03/30/2024 15:52:03 My Comment : FINAL REPORT CLINICAL HISTORY: twisted FINDINGS: Right foot Three views were obtained. There is no acute fracture or dislocation. The joint spaces appear normal. No soft tissue abnormality is identified. IMPRESSION: No acute process. Reviewed, Interpreted and Dictated by Hao Piña III, MD Transcribed by Tiera Heart Authenticated and [facility]: Image(s): Ankle Image Reviewed: Yes I reviewed the patient's radiology image and Yes Chuck burt reviewed radiologist's interpretation Preliminary Findings: No Fracture Seen Procedures Risk/Benefits of Procedure(s) Were Explained: Yes Orthopedic Splinting/Casting Injury #1: Side: right Lower Extremity Injury Location: ankle and foot Lower Extremity Immobilizer: Adolfo wrap and applied by nurse/dr guy Post Cast/Splinting Neuro Status: intact and no change Post Cast/Splinting Vasc Status: intact and no change
[2024-03-30 16:17] VITALS: BP 157/92; PULSE 89; RESP 18; TEMP 37.2; O2SAT 99
== END 2024-03-30 16:17 | disposition home or self-care (01) ==
PROVIDERS: Emergency Provider Nurse Practitioner Family
DX: S93.401A Sprain of unspecified ligament of right ankle, initial encounter (principal); S93.601A Unspecified sprain of right foot, initial encounter; M25.571 Pain in right ankle and joints of right foot; X50.1XXA Overexertion from prolonged static or awkward postures, initial encounter
CPT/HCPCS: 73610; 73630; 99212; 99214; G0463

== ENCOUNTER 2025-07-22 09:41 | Outpatient (CLI) | payer BC, SELFPAY ==
--- NOTE | 2025-07-22 09:44 | XR_ITS ---
FINAL REPORT CLINICAL HISTORY: injury to R thigh COMPARISON: None FINDINGS: Two views of the right femur were obtained. There is no acute fracture or dislocation. The joint spaces are well preserved. There is no acute soft tissue abnormality. IMPRESSION: No acute abnormality identified. Reviewed, Interpreted and Dictated by Monae Villa MD Transcribed by Evangelina Helton Authenticated and [facility]
== END 2025-07-22 23:59 | disposition home or self-care (01) ==
LOC: RAD 09:42
PROVIDERS: Visit Provider Student in an Organized Health Care Education/Training Program
DX: S79.921A Unspecified injury of right thigh, initial encounter (principal)
CPT/HCPCS: 73552